=== PATIENT | male | born 1995 | race Caucasian/White ===

== ENCOUNTER 2020-12-22 08:09 | Emergency (ER) | payer OTHER ==
--- NOTE | 2020-12-22 08:42 | ED Physician Documentation ---
PD HPI LOWER EXT INJURY - Stated complaint Stated Complaint: LT FOOT PAIN - Chief complaint Chief Complaint: Ext Problem - History obtained from History obtained from: Patient - History of Present Illness PD HPI LOW EXT INJURY LOCATION: Left, Foot Type of injury: Other (walking on rocks [place] the beach) Where [place] Timing - onset: How many weeks ago (2) Timing - duration: Weeks (2) Timing - details: Abrupt onset, Still present Improved by: Rest, Immobilization Worsened by: Moving, Palpating Associated symptoms: Swelling. 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 He has had this pain and has been limping around and this been going on for about 2 weeks now. He was seen at the clinic and prescribed Naprosyn he came back to the clinic when he ran out. He has been given a release from having to wear his combat boots at work but despite this he continues to have his pain in his foot. He has not had x-ray. He still has pain when he tries to bear weight. The pain is over the dorsal aspect of the lateral foot distally Review of Systems Constitutional: denies: Fever Eyes: denies: Decreased vision Ears: denies: Ear pain Nose: denies: Congestion Throat: denies: Sore throat Respiratory: denies: Cough GI: denies: Vomiting PD PAST MEDICAL HISTORY - Past Medical History Past Medical History: No - Past Surgical History Past Surgical History: No - Allergies Allergies/Adverse Reactions: Allergies Allergy/AdvReac Type Severity Reaction Status Date / Time No Known Drug Allergies Allergy Verified 12/22/20 08:20 - Social History Does the pt smoke?: No Smoking Status: Never smoker Does the pt drink ETOH?: No Does the pt have substance abuse?: No - Immunizations Immunizations are current?: Yes - POLST Patient has POLST: No PD ED PE NORMAL - Vitals Vital signs reviewed: Yes - General General: Alert and oriented X 3, No acute distress, Well developed/nourished - HEENT HEENT: Atraumatic, PERRL, EOMI - Respiratory Respiratory: No respiratory distress - Derm Derm: Normal color, Warm and dry, No rash - Extremities Extremities: No deformity, Other (There is mild point tenderness over the dorsal aspect of the foot to the distal metatarsals on the left foot. Specifically over the fourth metatarsal. 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 No acute osseous abnormality.), EMP read indepedently, See rad report PD MEDICAL DECISION MAKING - ED course Complexity details: considered differential, d/w patient ED course: 25-year-old male who developed some metatarsalgia after walking on the beach has persistent symptoms after [address] him into a walking boot and have him follow-up with podiatry. Departure - Departure Disposition: 01 Home, Self Care Clinical Impression: Metatarsalgia of left foot Condition: Stable Instructions: Metatarsalgia Tx Follow-Up: JUDITH BAILEY MD [Primary Care Provider] - Zamzam Alejandro DPM [Provider Admit Priv/Credential] -
--- NOTE | 2020-12-22 09:16 | XRAY Report ---
PROCEDURE: Foot 3 View LT INDICATIONS: lateral distal metatarsal pain TECHNIQUE: 3 views of the foot were acquired. COMPARISON: None. FINDINGS: BONES: No acute, displaced fracture or dislocation. SOFT TISSUES: No focal abnormality. IMPRESSION: 1.No acute osseous abnormality. Reviewed by: Brandon Mcgee MD on 12/22/2020 9:14 AM PDT Approved by: Brandon Mcgee MD on 12/22/2020 9:14 AM PDT Station ID: [id number]
== END 2020-12-22 10:26 | disposition home or self-care (01) ==
LOC: ED 08:09
DX: M77.42 Metatarsalgia, left foot (principal)
CPT/HCPCS: 99282; 99283